=== PATIENT | male | born 1980 | race Caucasian/White ===

== ENCOUNTER → 2023-09-10 09:12 | Outpatient (CLI) | payer OTHER, SELFPAY ==
--- NOTE | 2023-09-10 10:13 | DI.RAD_ITS ---
Exam(s) XR FINGER LT INDEX EXAM: XR FINGER LT INDEX CLINICAL HISTORY: finger injury, left 2nd,? fx. TECHNIQUE: 2D digital imaging was performed. Three views. COMPARISON: None. FINDINGS: BONES: No acute fracture is present. No bony destructive lesion is seen. JOINTS: No dislocation present. Degenerative changes distal interphalangeal joint. z SOFT TISSUE: Swelling distally at index finger IMPRESSION: Evidence of fracture. DATA REPOSITORY: RADIATION DOSE DELIVERED:
== END ==
PROVIDERS: PCP Nurse Practitioner Adult Health; Visit Provider Physician Assistant
DX: M18.12 Unilateral primary osteoarthritis of first carpometacarpal joint, left hand (principal)
CPT/HCPCS: 73140

== ENCOUNTER 2024-09-07 13:51 | Outpatient (CLI) | payer OTHER, SELFPAY ==
--- NOTE | 2024-09-07 12:35 | DI.RAD_ITS ---
Exam(s) XR LUMBAR SPINE COMPLETE EXAM: XR LUMBAR SPINE COMPLETE CLINICAL HISTORY: M54.9 Dorsalgia, G89.29 back pain 4 years after fell on rocks. TECHNIQUE: 2D digital imaging was performed of the lumbar spine. Five images were obtained. AP, la teral, right oblique, left oblique and L5-S1 spot views were obtained. COMPARISON: CR LUMBAR SPINE COMPLETE from 01/13/2017 FINDINGS: BONES: No fracture or destructive lesion. There are endplate osteophytes seen at the lower thoracic a nd lumbar spine. No facet hypertrophy identified. DISKS: There is disc space narrowing at L5-S1 with endplate osteophytes. ALIGNMENT: Lumbar spinal alignment is within normal limits. No spondylolysis or spondylolisthesis. SOFT TISSUE: Normal. IMPRESSION: Mild degenerative changes are seen in the lumbar spine. DATA REPOSITORY: RADIATION DOSE DELIVERED:
== END 2024-09-07 14:11 ==
PROVIDERS: PCP Nurse Practitioner Adult Health; Visit Provider Nurse Practitioner
DX: M51.360 Other intervertebral disc degeneration, lumbar region with discogenic back pain only (principal)
CPT/HCPCS: 72110